=== PATIENT | male | born 1980 | race Caucasian/White ===

== ENCOUNTER 2021-04-10 10:17 | Emergency (ER) | payer SELFPAY ==
[2021-04-10 10:50] VITALS: TEMP 99.2; BMI 33.3
[2021-04-10] MEDS ORDERED: ONDANSETRON 4 MG/2 ML VIAL IVPUSH ONE (10:52)
[2021-04-10] MEDS ORDERED: ONDANSETRON 4 MG/2 ML VIAL ONE (11:21)
[2021-04-10] MEDS ORDERED: KETOROLAC TROMETHAMINE 15 MG/ML VIAL IVPUSH ONE (11:38)
[2021-04-10 11:44] LABS: BASO % 4.3 % (0-2.0); EOS % 0.4 % (0-4.5); HEMATOCRIT 41.9 % (35.4-49); HEMOGLOBIN 13.6 GM/dl (11.7-16.9); LYMPH % 20.4 % (8-40); MCHC 32.5 g/dl (32.0-35.9); MEAN CELL VOLUME 92.2 fl (80-96); MEAN PLT VOLUME 7.6 fl (7.5-11.1); MONO % 10.2 % (3.8-10.2); NEUT % 64.7 % (42.8-82.8); PLATELET COUNT 230 10^3/uL (134-434); RBC 4.55 M/mm3 (4.00-5.60); RDW 13.5 % (11.9-15.9); WHITE BLOOD COUNT 6.2 K/mm3 (4.0-10.8)
[2021-04-10 11:53] LABS: ALBUMIN 3.8 g/dl (3.4-5.0); BILIRUBIN,TOTAL 0.4 mg/dl (0.2-1); CALCIUM 8.7 mg/dl (8.5-10); CREATININE 0.8 mg/dl (0.55-1.3); TOT PROT 7.1 g/dl (6.4-8.2)
[2021-04-10] MEDS ORDERED: KETOROLAC TROMETHAMINE 15 MG/ML VIAL ONE (12:00)
[2021-04-10 14:05] VITALS: BP 123/75; PULSE 80
== END 2021-04-10 14:08 | disposition home or self-care (01) ==
LOC: FER 10:17
PROC: 3E0333Z Introduction of Anti-inflammatory into Peripheral Vein, Percutaneous Approach (ICD-10-PCS; principal; 2021-04-10)
PROC: 3E033GC Introduction of Other Therapeutic Substance into Peripheral Vein, Percutaneous Approach (ICD-10-PCS; 2021-04-10)
DX: R10.9 Unspecified abdominal pain (principal); R31.9 Hematuria, unspecified
CPT/HCPCS: 36415; 74176-TC; 76705-TC; 76775-TC; 80053; 81003; 81015; 83690; 85025; 87086; 99285-25

== ENCOUNTER 2022-01-03 19:12 | Emergency (ER) | payer OTHER ==
[2022-01-03 19:30] VITALS: BP 118/73; PULSE 88; TEMP 99.6; BMI 33.5
[2022-01-03] MEDS ORDERED: IBUPROFEN 600 MG TABLET (FP) PO ONE ×2 (19:49→19:54)
== END 2022-01-03 19:57 | disposition home or self-care (01) ==
LOC: FER 19:12
DX: M54.50 Low back pain, unspecified (principal)
CPT/HCPCS: 81003; 81015; 99283-25

== ENCOUNTER 2023-07-31 14:56 | Emergency (ER) | payer OTHER ==
[2023-07-31 15:07] VITALS: BP 126/76; PULSE 68; RESP 18; TEMP 97.2; BMI 29.7
== END 2023-07-31 16:52 | disposition home or self-care (01) ==
LOC: JER 14:56 → JERFT 14:56
DX: R05.9 Cough, unspecified (principal); R09.81 Nasal congestion; J01.11 Acute recurrent frontal sinusitis; Z20.822 Contact with and (suspected) exposure to COVID-19
CPT/HCPCS: 0241U-QW; 99283-25